=== PATIENT | female | born 1965 | race Caucasian/White ===

== ENCOUNTER 2017-10-29 13:36 | Emergency (ER) | payer OTHER ==
[2017-10-29 13:42] VITALS: TEMP 36.8; Ht 154.9 cm
--- NOTE | 2017-10-29 14:26 | DIAGNOSTIC IMAGING REPORT ---
R ANKLE MIN 3 VIEWS ROUTINE CLINICAL HISTORY: r ankle pain trauma COMPARISON: None. DISCUSSION: Transverse nondisplaced fracture distal tibia immediately superior to the medial malleolus. Ankle mortise is aligned anatomically. Moderate soft tissue edema. All remaining osseous structures are unremarkable. Small heel spur. Mild soft tissue edema IMPRESSION: Transverse nondisplaced fracture distal tibia im medially superior to the medial malleolus. Soft tissue edema. No evidence for dislocation. The above report was generated using voice recognition software. It may contain grammatical, syntax or spelling errors. Electronically signed by: Vasquez Duke M.D. 10/29/2017 2:25 PM Dictated Date/Time: 10/29/2017 2:23 PM
--- NOTE | 2017-10-29 14:28 | DIAGNOSTIC IMAGING REPORT ---
R TIBIA/FIBULA 2 VIEWS ROUTINE CLINICAL HISTORY: r leg pain pain COMPARISON: None. DISCUSSION: Oblique fracture proximal fibula. Transverse fracture distal tibia superior to the medial malleolus. All remaining osseous structures are unremarkable. Small heel spur is present at the posterior heel. Minimal ossification Achilles tendon insertion. IMPRESSION: 1. Oblique nondisplaced fracture proximal fibula. 2. Transverse fracture distal tibia immediately superior to the medial malleolus. The above report was generated using voice recognition software. It may contain grammatical, syntax or spelling errors. Electronically signed by: Vasquez Duke M.D. 10/29/2017 2:26 PM Dictated Date/Time: 10/29/2017 2:25 PM
--- NOTE | 2017-10-29 14:38 | DIAGNOSTIC IMAGING REPORT ---
HEAD WITHOUT CONTRAST (CT) CT DOSE: HISTORY: Trauma fall TECHNIQUE: Multiaxial CT images of the head were performed without the use of intravenous contrast. A dose lowering technique was utilized adhering to the principles of ALARA. Comparison: None. Findings: The paranasal sinuses and mastoid air cells are clear. The calvarium and skull base are intact. The ventricles and sulci are within normal limits. There is no mass, hematoma, midline shift, or acute infarct. Impression: No acute intracranial abnormality. The above report was generated using voice recognition software. It may contain grammatical, syntax or spelling errors. Electronically signed by: Vasquez Duke M.D. 10/29/2017 2:36 PM Dictated Date/Time: 10/29/2017 2:30 PM
--- NOTE | 2017-10-29 14:43 | DIAGNOSTIC IMAGING REPORT ---
CERVICAL SPINE W/O CT DOSE: 948.29 mGy.cm HISTORY: Trauma fall TECHNIQUE: Multiaxial CT images of the cervical spine were performed and reformatted in the sagittal and coronal plane without the use of contrast. A dose lowering technique was utilized adhering to the principles of ALARA. COMPARISON: None. FINDINGS: No fractures. No subluxation. Prevertebral soft tissues and the C1-C2 interval are intact. No pneumothorax. Straightening of the cervical curvature consistent with muscular spasm. Degenerative disc change from C5 through C7. Anterior osteophyte at similar levels. IMPRESSION: No acute bony abnormality. Moderate degenerative change. Muscle spasm. The above report was generated using voice recognition software. It may contain grammatical, syntax or spelling errors. Electronically signed by: Vasquez Duke M.D. 10/29/2017 2:42 PM Dictated Date/Time: 10/29/2017 2:40 PM
[2017-10-29] MEDS ORDERED: OXYC-737 PO (15:03)
[2017-10-29 15:50] VITALS: BP 150/82; PULSE 108; O2SAT 98
--- NOTE | 2017-10-29 20:30 | EMERGENCY ROOM VISIT NOTE ---
History Report prepared by Adeelibzain: Natalia Diaz Under the Supervision of: Dr. Adolfo Martinez D.O. First contact with patient: 13:54 Chief Complaint: ANKLE PAIN Stated Complaint: ANKLE PAIN History of Present Illness The patient is a 52 year old female who presents to the Emergency Room with complaints of persistent right ankle pain since last night. She reports she was walking downstairs when she fell. She remembers dropping popcorn during the fall , but is unsure exactly what happened, although she remembers falling backwards and hitting her head. She states she does not know how she injured her left ankle. She rates her ankle pain as a 9/10 in severity. She did not lose consciousness and was able to get herself up afterwards. She does complain of some head pain where she hit her head during the fall. She does not take daily blood thinners. The patient denies any recent change in vision, fevers, chest pain, shortness of breath, neck pain, back pain, hip pain, knee pain, nausea, vomiting, diarrhea, pain with urination, and melena. Source of History: patient Onset: last night Position: ankle (right) Symptom Intensity: 9/10 Timing: other (persistent) Associated Symptoms: + headache, No LOC, No fevers, No neck pain, No chest pain, No SOB, No nausea, No vomiting, No back pain, No melena, No diarrhea, No urinary symptoms Review of Systems See HPI for pertinent positives & negatives. A total of 10 systems reviewed and were otherwise negative. Past Medical & Surgical Medical Problems: (1) Diabetes mellitus Social History Smoking Status: Never Smoker Alcohol Use: none Drug Use: none Marital Status: single Housing Status: lives alone Occupation Status: unemployed Current/Historical Medications Scheduled PRN Oxycodone Immediate Rel Tab (Roxicodone Ir), 5 MG PO Q6H PRN for Pain Allergies Coded Allergies: No Known Allergies (Unverified , 10/29/17) Physical Exam Vital Signs Date Time Temp Pulse Resp B/P (MAP) Pulse Ox O2 Delivery O2 Flow Rate FiO2 10/29/17 15:50 108 20 150/82 98 Room Air 10/29/17 13:54 114 17 134/94 97 Room Air 10/29/17 13:42 36.8 124 18 133/75 95 Room Air Physical Exam GENERAL: Patient is sitting up in bed, alert, well appearing, well nourished, no distress, non-toxic HEAD: normal cephalic, atraumatic, minimal tenderness at the occiput EYE EXAM: normal conjunctiva, PERRL and EOM's grossly intact OROPHARYNX: no exudate, no erythema, lips, buccal mucosa, and tongue normal and mucous membranes are moist EARS: TMs clear b/l NECK: supple, no nuchal rigidity, no adenopathy, non-tender CHEST: stable to compression anteriorly and posteriorly LUNGS: clear to auscultation. Normal chest wall mechanics HEART: Tachycardic heart rate, no murmurs, S1 normal and S2 normal ABDOMEN: abdomen soft, non-tender, normo-active bowel sounds, no masses, no rebound or guarding. PELVIS: stable to compression anteriorly and posteriorly BACK: Back is symmetrical on inspection and there is no deformity, no midline tenderness, no CVA tenderness. UPPER EXTREMITIES: Full active and passive range of motion of all joints without tenderness to palpation LOWER EXTREMITIES: Right lower extremity with bruising and swelling from mid shaft of tibia/fibula to the right ankle, tenderness over the medial malleolus, DP's 2/4, gross sensation is intact. NEURO EXAM: Normal sensorium, cranial nerves II-XII grossly intact, normal speech, no gross weakness of arms, no gross weakness of legs. GCS: 15. Medical Decision & Procedures ER Provider Diagnostic Interpretation: Radiology results as stated below per my review and the radiologist's interpretation: R ANKLE MIN 3 VIEWS ROUTINE CLINICAL HISTORY: r ankle pain trauma COMPARISON: None. DISCUSSION: Transverse nondisplaced fracture distal tibia immediately superior to the medial malleolus. Ankle mortise is aligned anatomically. Moderate soft tissue edema. All remaining osseous structures are unremarkable. Small heel spur. Mild soft tissue edema IMPRESSION: Transverse nondisplaced fracture distal tibia im medially superior to the medial malleolus. Soft tissue edema. No evidence for dislocation. The above report was generated using voice recognition software. It may contain grammatical, syntax or spelling errors. Electronically signed by: Vasquez Duke M.D. 10/29/2017 2:25 PM CERVICAL SPINE W/O CT DOSE: 948.29 mGy.cm HISTORY: Trauma fall TECHNIQUE: Multiaxial CT images of the cervical spine were performed and reformatted in the sagittal and coronal plane without the use of contrast. A dose lowering technique was utilized adhering to the principles of ALARA. COMPARISON: None. FINDINGS: No fractures. No subluxation. Prevertebral soft tissues and the C1-C2 interval are intact. No pneumothorax. Straightening of the cervical curvature consistent with muscular spasm. Degenerative disc change from C5 through C7. Anterior osteophyte at similar levels. IMPRESSION: No acute bony abnormality. Moderate degenerative change. Muscle spasm. The above report was generated using voice recognition software. It may contain grammatical, syntax or spelling errors. Electronically signed by: Vasquez Duke M.D. 10/29/2017 2:42 PM HEAD WITHOUT CONTRAST (CT) CT DOSE: HISTORY: Trauma fall TECHNIQUE: Multiaxial CT images of the head were performed without the use of intravenous contrast. A dose lowering technique was utilized adhering to the principles of ALARA. Comparison: None. Findings: The paranasal sinuses and mastoid air cells are clear. The calvarium and skull base are intact. The ventricles and sulci are within normal limits. There is no mass, hematoma, midline shift, or acute infarct. Impression: No acute intracranial abnormality. The above report was generated using voice recognition software. It may contain grammatical, syntax or spelling errors. Electronically signed by: Vasquez Duke M.D. 10/29/2017 2:36 PM R TIBIA/FIBULA 2 VIEWS ROUTINE CLINICAL HISTORY: r leg pain pain COMPARISON: None. DISCUSSION: Oblique fracture proximal fibula. Transverse fracture distal tibia superior to the medial malleolus. All remaining osseous structures are unremarkable. Small heel spur is present at the posterior heel. Minimal ossification Achilles tendon insertion. IMPRESSION: 1. Oblique nondisplaced fracture proximal fibula. 2. Transverse fracture distal tibia immediately superior to the medial malleolus. The above report was generated using voice recognition software. It may contain grammatical, syntax or spelling errors. Electronically signed by: Vasquez Duke M.D. 10/29/2017 2:26 PM ED Course ED COURSE: Vital signs were reviewed and showed the patient is tachycardic. The patients medical record was reviewed The above diagnostic studies were performed and reviewed. ED treatments and interventions as stated above. 1355: The patient was evaluated in room A10. A complete history and physical examination was performed. 1450: I reevaluated the patient. She is resting comfortably. I discussed her imaging results and she verbalized complete understanding and agreement. 1455: I discussed the patients case with Dr. [facility]. He agrees with splinting the patient and will follow up with her in the office on Monday. 1520: Upon reevaluation, the patient is resting and feeling well. She has good capillary refill and is in no pain after splinting. I discussed my findings with the patient and she understands and agrees with the treatment plan. Based on the patients age, coexisting illnesses, exam and lab findings the decision to treat as an outpatient was made. The patient remained stable while under my care. The patient appeared well at the time of discharge. Medical Decision Etiologies such as fracture, dislocation, neurovascular compromise, compartment syndrome, soft tissue injury, as well as others were entertained. Patient is a 52-year-old female who tripped last night and hurt her right ankle. She is tenderness over the ankle and proximal fibula. X-rays show a fracture of the distal tibia and proximal fibula. This was splinted after discussion with orthopedics. Patient will follow-up on Monday morning. She was given a walker. Nonweightbearing with stress. Pain medications were given. CT head and neck were negative. She takes no blood thinners. No other complaints. Patient was discharged follow-up with orthopedics as an outpatient. Discussed with Pt concerning signs and symptoms to watch out for. Pt was instructed to follow up with their PCP and discussed with the patient their option to return to the ED at anytime for persistent or worsening symptoms. The appropriate anticipatory guidance and out-patient management, including indications for return to the emergency department, were explained at length to the patient and understood. Medication Reconcilliation Current Medication List: was personally reviewed by me Blood Pressure Screening Patient's blood pressure: Normal blood pressure Blood pressure disposition: Did not require urgent referral Consults Time Called: 1449 Consulting Physician: Dr. [facility] Returned Call: 1450 I discussed the patients case with Dr. [facility]. He agrees with splinting the patient and will follow up with her in the office on Monday. Impression Primary Impression: Maisonneuve fracture Additional Impressions: Fracture of distal end of right tibia Fracture of proximal end of right fibula Scribe Attestation The scribe's documentation has been prepared under my direction and personally reviewed by me in its entirety. I confirm that the note above accurately reflects all work, treatment, procedures, and medical decision making performed by me. Departure Information Dispostion Home / Self-Care Prescriptions Oxycodone Immediate Rel Tab (ROXICODONE IR) 5 Mg Tab 5 MG PO Q6H Y for Pain, #14 TAB Prov: Juan Adolfo Novak, DO 10/29/17 Referrals No Doctor, Assigned (PCP) Patient Instructions ED Fx Ankle General, My [facility] Additional Instructions Please follow up with your primary care doctor with in the next 24 hours. Any worsening of your symptoms, please return to the ED immediately. This includes any worsening pain, numbness, increased swelling, or any other concerning signs or symptoms from your standpoint. You were given medications during this visit that will inhibit your ability to drive, operate machinery and work. Please do NOT drive, operate machinery or work for the next 12hrs. You were also given a prescription for a narcotic. While taking this medication you should also not drive, operate machinery and or work. Follow-up with orthopedics on Monday. Problem Qualifiers Primary Impression: Maisonneuve fracture Encounter type: initial encounter Fracture type: closed Fracture alignment : nondisplaced Laterality: unspecified laterality Qualified Codes: S82.866A - Nondisplaced Maisonneuve's fracture of unspecified leg, initial encounter for closed fracture Additional Impressions: Fracture of distal end of right tibia Encounter type: initial encounter Fracture type: closed Fracture morphology : unspecified fracture morphology Qualified Codes: S82.301A - Unspecified fracture of lower end of right tibia, initial encounter for closed fracture Fracture of proximal end of right fibula Encounter type: initial encounter Fracture type: closed Fracture morphology : unspecified fracture morphology Qualified Codes: S82.831A - Other fracture of upper and lower end of right fibula, initial encounter for closed fracture
[2017-11-02] MEDS ORDERED: PROM1TAB6 PO (11:10)
[2017-11-06] MEDS ORDERED: ASPI-320 PO (07:43)
== END 2017-10-29 16:15 | disposition home or self-care (01) ==
LOC: C.EDB 13:37 → C.EDA 16:15
DX: S82.864A Nondisplaced Maisonneuve's fracture of right leg, initial encounter for closed fracture (principal); S82.301A Unspecified fracture of lower end of right tibia, initial encounter for closed fracture; S82.831A Other fracture of upper and lower end of right fibula, initial encounter for closed fracture; W10.9XXA Fall (on) (from) unspecified stairs and steps, initial encounter; W22.8XXA Striking against or struck by other objects, initial encounter; Y93.01 Activity, walking, marching and hiking; Y99.8 Other external cause status; E11.9 Type 2 diabetes mellitus without complications

== ENCOUNTER 2017-11-03 06:48 | Inpatient (IN) | payer SELFPAY ==
[2017-11-02 11:13] VITALS: BMI 28.0
--- NOTE | 2017-11-02 11:41 | PAT Medication Instructions ---
Service Date Nov 02, 2017. Current Home Medication List Oxycodone Immediate Rel Tab (Roxicodone Ir), 5 MG PO Q6H PRN for Pain Promethazine (Phenergan), 25 MG PO Q8 PRN for prn Medication Instructions For Your Scheduled Surgery - Take the following medications the morning of surgery with a sip of water: Oxycodone Immediate Rel Tab (Roxicodone Ir), 5 MG PO Q6H PRN for Pain (if needed , can be taken up to four hours before surgery) Promethazine (Phenergan), 25 MG PO Q8 PRN for prn (if needed) - Take the following medications as scheduled the night before surgery: Oxycodone Immediate Rel Tab (Roxicodone Ir), 5 MG PO Q6H PRN for Pain (if needed ) Promethazine (Phenergan), 25 MG PO Q8 PRN for prn (if needed) Tylenol OK AM day of surgery due to nausea/vomiting from Oxycodone-- DO NOT TAKE IBUPROFEN. If you have any questions please call us at [phone] or [phone] or [phone]
--- NOTE | 2017-11-02 12:35 | DIAGNOSTIC IMAGING REPORT ---
TWO VIEW CHEST CLINICAL HISTORY: Preoperative examination. FINDINGS: PA and lateral chest radiographs are obtained. No prior studies are available for comparison at the time of dictation. The cardiomediastinal silhouette is unremarkable. There is minimal left basilar atelectasis. The lungs and pleural spaces are otherwise clear. There is no pneumothorax. The bony thorax appears intact. IMPRESSION: No active disease in the chest. Electronically signed by: Connor Mahoney M.D. 11/02/2017 12:34 PM Dictated Date/Time: 11/02/2017 12:33 PM
[2017-11-02 12:54] LABS: BASO % 0.3 %; BASO ABS # 0.03 K/uL (0-0.2); EOS % 0.3 %; EOS ABS # 0.03 K/uL (0-0.5); HEMATOCRIT 37.3 % (37-47); HEMOGLOBIN 12.6 g/dL (12.0-16.0); IG# 0.04 K/uL (0.00-0.02); LYMPH % 14.5 %; LYMPH ABS # 1.73 K/uL (1.2-3.4); MEAN CELL VOLUME 93.3 fL (80-100); MEAN CORPUSCULAR HEMOGLOBIN 31.5 pg (25-34); MEAN CORPUSCULAR HGB CONC 33.8 g/dl (32-36); MEAN PLATELET VOLUME 11.3 fL (7.4-10.4); MONO % 6.3 %; MONO ABS # 0.75 K/uL (0.11-0.59); NEUT % 78.3 %; NEUT ABS # 9.32 K/uL (1.4-6.5); PLATELET COUNT 220 K/uL (130-400); RED CELL DISTRIBUTION WIDTH CV 12.6 % (11.5-14.5); RED CELL DISTRIBUTION WIDTH SD 42.6 fL (36.4-46.3)
[2017-11-02 13:06] LABS: PTT PATIENT 25.7 SECONDS (21.0-31.0)
[2017-11-02 13:18] LABS: HEMOGLOBIN A1C 11.1 % (4.5-5.6)
[2017-11-02 16:55] LABS: ALBUMIN 3.3 gm/dl (3.4-5.0); CALCIUM 9.6 mg/dl (8.5-10.1); POTASSIUM 4.1 mmol/L (3.5-5.1)
--- NOTE | 2017-11-02 18:50 | History and Physical ---
History & Physical Date Nov 02, 2017. Chief Complaint right ankle pain History of Present Illness The patient is a 52 year old female with complaints of right ankle pain following a fall. She had x-rays performed which noted a medial malleolus fx and also a proximal fibula fx. She was placed into a splint on the RLE and is now being set up for surgical tx. Past Medical/Surgical History Medical Problems: (1) Diabetes mellitus Past Surgical hx: None Social hx: Denies tobacco and alcohol Allergies Coded Allergies: No Known Allergies (Unverified , 11/02/17) Home Medications Scheduled PRN Oxycodone Immediate Rel Tab (Roxicodone Ir), 5 MG PO Q6H PRN for Pain Promethazine (Phenergan), 25 MG PO Q8 PRN for prn Physical Examination Skin: warm/dry, no rash Eyes: normal inspection ENT: normal ENT inspection Head: normocephalic, atraumatic Neck: supple, no adenopathy, trachea midline Respiratory/Chest: lungs clear, normal breath sounds, no respiratory distress Cardiovascular: regular rate, rhythm, no murmur Abdomen / GI: normal bowel sounds, non tender Extremities: + pertinent finding (Right ankle: +swelling, Tender at the medial malleolus and proximal fibula. No ROM or strength testing done.) Neurologic/Psych: no motor/sensory deficits, alert, oriented x 3 Diagnosis Right ankle medial malleolus fx Right proximal fibula fx Plan of Treatment Recommend an ORIF right medial malleolus fx, closed tx right proximal fibula fx. All potential risks, benefits, complications, alternatives, and rehab have been discussed and she wishes to proceed. She will be scheduled for 11.03.17. ASA 81 mg BID x 4-6 wks for DVT prophylaxis. Patient will need to be evaluated for DM control.
[~2017-11-03] VITALS: Ht 154.9 cm; Wt 68.2 kg
[2017-11-03] VITALS (9 sets, daily range): BP systolic 109–146; BP diastolic 53–85; PULSE 77–100; TEMP 37–37.5; O2SAT 92–98; Ht 154.9 cm; Wt 68.2 kg
[~2017-11-03 06:48] MED LIST: BUPIVACAINE 0.25% 30 ML VIAL ONE; CEFAZOLIN 2000MG IV PUSH 10 ML IV SCH; FENTANYL CITRATE INJ 50 MCG/1 ML 2 ML VIAL ONE; GLYCOPYRROLATE INJ 0.2 MG/ML VIAL ONE; MIDAZOLAM HCL 1 MG/ML 2ML VIAL ONE; NEOSTIGMINE METHYLSULFATE 5 MG/5 ML SYR ONE; ONDANSETRON INJ 2 MG/ML 2 ML VIAL ONE; OXYC1TAB3 PO; PROM1TAB6 PO; PROPOFOL IV EMULSION 10 MG/ML 20 ML VIAL IV ONE; ROCURONIUM BROMIDE 10 MG/ML 5 ML VIAL IV ONE; ROPIVACAINE 0.5% 5 MG/ML 30 ML VIAL ONE
[2017-11-03] MEDS ORDERED: BUPIVACAINE 0.5 % 5 MG/1 ML MPF 30ML VIAL ONE (07:03)
[2017-11-03] MEDS ORDERED: EpINEphrine INJ 1MG/ML AMP 1 MG/ML AMP ONE (07:03)
--- NOTE | 2017-11-03 07:57 | History & Physical Bridge Note ---
H&P Re-Evaluation Bridge Note: I have examined the patient, reviewed the History & Physical and in the interval since the performance of the History & Physical I have noted the following changes of clinical significance: No changes noted
[2017-11-03 08:13] LABS: CALCIUM 8.8 mg/dl (8.5-10.1); CREATININE 0.92 mg/dl (0.60-1.20); POTASSIUM 3.9 mmol/L (3.5-5.1)
[2017-11-03 08:23] LABS: HEMOGLOBIN A1C 11.2 % (4.5-5.6)
[2017-11-03] MEDS ORDERED: CEFAZOLIN SOD 2000MG/10 ML IV PUSH IV ONE (08:54)
[2017-11-03] MEDS ORDERED: BACITRACIN 50000 UNIT VIAL ONE (09:19)
[2017-11-03] MEDS ORDERED: FENTANYL CITRATE INJ 50 MCG/1 ML 2 ML VIAL ONE ×2 (09:38→09:39)
[2017-11-03] MEDS ORDERED: KETAMINE HCL INJ 50 MG/ML 10 ML VIAL ONE (09:51)
[2017-11-03] MEDS ORDERED: KETOROLAC TROMETHAMINE 15 MG/ML VIAL IV. PRN (10:00)
[2017-11-03] MEDS ORDERED: ACETAMINOPHEN 1000 MG/100 ML IV IV ONE (10:00)
[2017-11-03] MEDS ORDERED: ATROPINE SULFATE 0.1 MG/ML 5ML SYR IV PRN (10:00)
[2017-11-03] MEDS ORDERED: FENTANYL CITRATE INJ 50 MCG/1 ML 2 ML VIAL IV PRN (10:00)
[2017-11-03] MEDS ORDERED: ONDANSETRON INJ 2 MG/ML 2 ML VIAL IV PRN ×2 (10:00→10:30)
[2017-11-03] MEDS ORDERED: HYDROmorphone INJ 1 MG/ML SYR IV PRN (10:00)
[2017-11-03] MEDS ORDERED: EpHEDrine SULFATE INJ 50 MG/ML AMP IV PRN (10:00)
--- NOTE | 2017-11-03 10:03 | [facility] Post Operative Brief Note ---
Immediate Operative Summary Operative Date Nov 03, 2017. Pre-Operative Diagnosis Right ankle displaced medial malleolus fracture, Right proximal fibula fracture, Syndesmotic injury Post-Operative Diagnosis Right ankle displaced medial malleolus fracture, Right proximal fibula fracture, Syndesmotic injury Procedure(s) Performed Open reduction internal fixation right ankle medial malleolus fracture, Open reduction internal fixation syndesmosis, Closed treatment right proximal fibula fracture Surgeon Dr. Iman Zabala [employer] Surgeon(s) Aki Ho PA-C Estimated Blood Loss 2 cc Findings See dict Specimens none per surgeon Drains None Anesthesia GLMA w/ partial ankle block Complication(s) None Disposition Recovery Room / PACU
[2017-11-03] MEDS ORDERED: CEFAZOLIN IV 1,000 MG in DEXTROSE 5% 50ML 50 ML IV SCH (10:30)
[2017-11-03] MEDS ORDERED: ALUMINUM/MAGNESIUM/SIMETH (MAALOX MAX) 30 ML UDC PO PRN (10:30)
[2017-11-03] MEDS ORDERED: MoRPHine SULFATE 4 MG/ML 1 ML CARP\\VIAL IV PRN (10:30)
[2017-11-03] MEDS: POTASSIUM CHLORIDE INJ 10 MEQ in SODIUM CHLORIDE 0.9% 1000ML 1,000 ML IV SCH ×3 (10:30→17:09)
[2017-11-03] MEDS ORDERED: MAGNESIUM HYDROXIDE SUSP 30 ML UDC PO PRN (10:30)
[2017-11-03] MEDS ORDERED: MoRPHine SULFATE 2 MG/ML CARP IV PRN (10:30)
--- NOTE | 2017-11-03 10:43 | DIAGNOSTIC IMAGING REPORT ---
R ANKLE 2 VIEWS CLINICAL HISTORY: 52 years-old Female presenting with RT ANKLE ORIF. TECHNIQUE: 2 fluoroscopic spot image(s) obtained as part of an intraoperative procedure. COMPARISON: 10/29/2017. FINDINGS/IMPRESSION: 2 syndesmotic screw fixation across the tibiofibular articulation and 2 lag screw fixation of the medial malleolus noted. Ankle mortise grossly intact. Please see surgical report for further details. Fluoroscopy dosage (mGy): 1.28. Fluoroscopy time: 44.9 seconds. Number of fluoroscopic spot images: 2. Electronically signed by: Didier Clements M.D. 11/03/2017 10:42 AM Dictated Date/Time: 11/03/2017 10:41 AM
[2017-11-03] MEDS ORDERED: PHARMACY GLYCEMIC MGMT CONSULT PRN (10:49)
[2017-11-03] MEDS ORDERED: DEXTROSE 50% 50 ML SYR IV PRN (11:00)
[2017-11-03] MEDS ORDERED: GLUCOSE 40% GEL 15 GM TUBE PO PRN (11:00)
[2017-11-03] MEDS ORDERED: GLUCOSE 10 TABS/TUBE PO PRN (11:00)
[2017-11-03] MEDS ORDERED: GLUCAGON FOR INJ 1 MG VIAL SQ PRN (11:00)
--- NOTE | 2017-11-03 11:17 | Anesthesiology Progress Note ---
Anesthesia Post Op Note Date & Time Nov 03, 2017 at 11:17 Vital Signs Pain Intensity: 0 Vital Signs Past 12 Hours Date Time Temp Pulse Resp B/P (MAP) Pulse Ox O2 Delivery O2 Flow Rate FiO2 11/03/17 11:06 73 146/84 100 11/03/17 11:06 75 16 11/03/17 11:01 77 141/66 100 11/03/17 11:01 76 16 11/03/17 11:00 36.4 11/03/17 10:57 81 16 100 11/03/17 10:57 82 11/03/17 10:56 149/75 11/03/17 10:52 78 17 11/03/17 10:52 77 17 100 11/03/17 10:51 136/94 11/03/17 10:47 80 13 11/03/17 10:47 79 13 100 11/03/17 10:46 144/85 11/03/17 10:42 86 17 100 11/03/17 10:42 83 17 11/03/17 10:41 158/86 11/03/17 10:40 Nasal Cannula 3 11/03/17 10:37 92 13 100 11/03/17 10:37 93 13 11/03/17 10:36 155/98 11/03/17 10:32 97 14 11/03/17 10:32 98 14 100 11/03/17 10:30 157/93 11/03/17 10:27 36.6 97 12 157/93 100 Oxymask 7 11/03/17 07:23 37 100 18 130/53 (78) 95 Room Air Notes Mental Status: alert / awake / arousable, participated in evaluation Pt Amnestic to Procedure: Yes Nausea / Vomiting: adequately controlled Pain: adequately controlled Airway Patency, RR, SpO2: stable & adequate BP & HR: stable & adequate Hydration State: stable & adequate Anesthetic Complications: no major complications apparent
--- NOTE | 2017-11-03 11:17 | OPERATIVE REPORT ---
DATE OF OPERATION: 11/03/2017 PREOPERATIVE DIAGNOSES: 1. Right displaced medial malleolus fracture. 2. Syndesmotic disruption. 3. Proximal fibula fracture. POSTOPERATIVE DIAGNOSES: Same. PROCEDURES: 1. Open reduction and internal fixation of right medial malleolus fracture. 2. Open reduction and internal fixation of right syndesmotic disruption. 3. Closed treatment of right proximal fibula fracture. SURGEON: Dr. Wicho Zabala. PRODUCT SUPPORT TECHNICIAN: Aki Ho PA-C. ANESTHESIA: General endotracheal tube with a partial ankle block. SPECIMENS: None. DRAINS: None. COMPLICATIONS: None. BLOOD LOSS: 2 mL. PERTINENT HISTORY: This is a 52-year-old female who had a trip and fall, landing on her right lower extremity. She had pain and inability to ambulate. She was seen in the Emergency Department and then eventually, splinted and referred to orthopedics. She is scheduled for surgery as indicated for her displaced medial malleolus fracture with syndesmotic disruption with medial ankle joint widening. All potential risks, benefits, complications, alternatives, rehab, potential for incomplete relief of symptoms, need for further surgery, DVT, PE, , persistent pain, swelling, scarring, weakness, neurovascular injury, wound complications, hardware failure, nonunion, malunion, stiffness and loss of function were discussed with the patient. The patient decided to proceed with the procedure as indicated. DESCRIPTION OF PROCEDURE: The patient was taken to the operative suite and placed supine on the operating room table. After reviewing consent and identification of proper operative site, the patient was anesthetized and endotracheal tube was placed. Next, tourniquet was placed high on the right thigh over cast padding. Right lower extremity was sterilely prepped and draped in the usual fashion, elevated, and exsanguinated with an Esmarch bandage and tourniquet inflated to 350 mmHg. Next, a 15 blade scalpel was used to make an incision over the medial malleolus. The incision was deepened through subcutaneous tissue. Meticulous hemostasis was achieved with electrocautery. Next, the saphenous vein was retracted and protected. There was noted to be a flap of periosteum, which had flipped into the fracture, thus explaining the displacement. The periosteal flap was then excised with a 15 blade scalpel. The fragment was then opened with a dental pick and then, a small rongeur was then used to remove any fibrous tissue. The wound was copiously irrigated with sterile normal saline. The fracture was irrigated with sterile normal saline. The fracture was then reduced using a point reduction forceps. After this was stabilized, this fragment was then fixated with two 4.0 cannulated screws placed under live fluoroscopic assistance to the medial malleolus. These screws were then slightly countersunk. Anatomic reduction was achieved. Next, using the C-arm fluoroscope, stress views were obtained, noting widening of the syndesmosis and widening of the medial joint space. Next, the 15 blade scalpel was then used to make a 1-cm incision over the lateral malleolus at the level of the syndesmosis. Next, a Pizano reduction tong was then placed from the medial malleolus to the lateral malleolus, stabilizing the syndesmosis with the foot held in neutral dorsiflexion. Next, two 3.5-mm screws were placed across the syndesmosis and stabilized. Next, stress views were then once again performed, noting stabilization of the syndesmosis and no further widening of the medial joint space. Next, the wounds were both irrigated with sterile normal saline. The deep periosteal tissue was closed with 2-0 Vicryl over the medial malleolus and then the dermis was closed using buried interrupted 2-0 Vicryl sutures in both medial and lateral incisions followed by closure of the skin incisions with 4-0 nylon. A partial ankle block was then performed with 0.5% Marcaine plain and then, the sterile compressive dressing was applied, overwrapped with a bulky Peter Arshad plaster splint, which was then also used to stabilize the operative fixation as well as the proximal fibula fracture, which was deemed appropriate to treat closed according to radiographs and positioning and alignment. Next, the tourniquet was released. The patient was awakened and taken to recovery in stable condition. I attest to the content of the Intraoperative Record and any orders documented therein. Any exception s are noted below.
[2017-11-03] MEDS: INSULIN ASPART 100 UNITS/ML 3 ML PEN SC SCH ×4 (12:00→21:53)
[2017-11-03] MEDS ORDERED: INSULIN GLARGINE SOLOSTAR 100 UNITS/ML 3 ML PEN SC SCH ×2 (12:00→21:00)
[2017-11-03] MEDS: OXYCODONE HCL IR 5 MG TAB (IMMEDIATE RELEASE) PO PRN (12:37)
[2017-11-03] MEDS: ACETAMINOPHEN 500 MG TAB PO SCH ×2 (13:04→22:19)
--- NOTE | 2017-11-03 13:53 | Pharmacy Progress Note ---
Glycemic Control Intl Consult Date of Service Nov 03, 2017. Scope Glycemic Pharmacist consulted by Aki Ho on 11/03/17 for glycemic control and to write orders per [facility] inpatient glycemic control protocol Objective Weight (Kilograms): 68.180 Accuchecks BSG (last 24hrs): Test 11/03/17 07:12 11/03/17 07:20 11/03/17 09:17 11/03/17 09:46 Bedside Glucose 365 mg/dl (70-90) 326 mg/dl (70-90) 240 mg/dl (70-90) Random Glucose 331 mg/dl (70-99) Test 11/03/17 10:31 11/03/17 12:29 Bedside Glucose 195 mg/dl (70-90) 227 mg/dl (70-90) Laboratory Data (last 24hrs) Test 11/03/17 07:20 Anion Gap 7.0 mmol/L BUN/Creatinine Ratio 17.0 Blood Urea Nitrogen 16 mg/dl Creatinine 0.92 mg/dl Hemoglobin A1c 11.2 % Potassium Level 3.9 mmol/L Sodium Level 133 mmol/L HbA1c Test 11/03/17 07:20 Hemoglobin A1c 11.2 % (4.5-5.6) H Recent Pertinent Medications Outpatient Anti-diabetic Regimen: * N/A Risk Factors for Insulin Resistance: * Recent Surgery: POD 0 for tib fracture surgery * Diet: type 2 diabetic diet: Assessment & Plan ASSESSMENT: * Ms Oconnor is a 52 y/o F who underwent a tibia fracture repair surgery today. Per nursing handoff, the patient does not current receive diabetes treatment. * Prior to surgery, the patient's blood sugar was 326 mg/dL this morning which has trended downwards throughout the day to 227 mg/dL prior to lunch. With multiple blood sugars above 200 mg/dL, started Lantus 15 units (0.2 units/kg) with additional dose available for this evening if blood sugar still elevated above 180 mg/dL. Tomorrow's dose to be established based upon the response today. * For Novolog, most individuals require around weight-based stress of 2 for meal -time coverage. Will begin this with an elevated goal range secondary to prolonged elevated blood sugars. Added on overnight accucheck to ensure patient does not trend upwards throughout the night. PLAN FOR INPATIENT GLYCEMIC CONTROL: * Basal insulin with LANTUS 15 units SQ x 1 then 5 units tonight if blood sugar remains above 180 mg/dL * Correctional Insulin with NOVOLOG per scale ACHS or Q6hrs while NPO * Goal Range: Low 140 mg/dL - High 180 mg/dL * Correction Factor: 30 mg/dL/unit * Nutritional / Prandial insulin per carb ratio of 1 unit per 10 grams CHO consumed * Please note that the plan above was derived based on current level of insulin resistance and hospital stress. These recommendations are appropriate for inpatient admission only. Plan of care upon discharge will need to be reassessed to avoid potential outpatient hypo/hyperglycemia. Thank you.
--- NOTE | 2017-11-03 14:53 | Medical Consult ---
Consultation Date of Consultation: Nov 03, 2017. Attending Physician: Wicho Zabala D.O. Reason for Consultation: Medical management History of Present Illness Pt is 52 y/o F with PMH diabetes seen for medical consultation after ORIF R medial malleolus fracture, ORIF R syndesmotic disruption and closed tx R proximal fibular fracture by Dr Zabala today. Pt admits has not been seen by PCP for >3 years and hasn't taken her metformin 1000mg BID or lisinopril 2.5mg or checked her BS for >3 years. States been "feeling fine" for past couple of years. Ate lunch today after surgery without nausea or vomiting. Last BM 2 days ago. Having some pain to R ankle, reports received some pain meds which helped to relieve some pain. Pt not taking any meds prior to her recent fracture. Denies recent fever/chills, diaphoresis, N/V/D, MAGANA, dizziness, vision changes, neck pain, back pain, CP, SOB, orthopnea, palpitations, cough, sore throat, choking, otalgia, rhinorrhea, abdominal pain, paresthesias, weakness, extremity weakness, extremity edema, rashes, urinary symptoms. She had labs yesterday with Hgb: 12.6 and EKG with NSR rate 92 and 1+ketones in urine. This morning gluc: 331, corrected Na 137, K: 3.9, A.0.HA1C: 11.2. beta-hydroxybutyric acid: 9.7. She was given lantus 15U at noon today and 6U NovoLog at 1300. Her last glucose 227 at 1230. Past Medical/Surgical History Medical Problems: (1) Diabetes mellitus Status: Chronic Pt Denies previous surgical history Family History Not obtainable due to adoption Social History Smoking Status: Never Smoker Smokeless Tobacco Use: No Alcohol Use: none Drug Use: none Marital Status: single Housing Status: lives alone Occupation Status: unemployed Allergies Coded Allergies: No Known Allergies (Unverified , 11/03/17) Current Inpatient Medications Current Inpatient Medications Medications (Trade) Dose Ordered Sig/Vaishali Route Start Time Stop Time Status Last Admin Dose Admin Fentanyl Citrate (Fentanyl Inj) 25 mcg Q5M PRN IV 11/03/17 10:00 11/03/17 15:00 Hydromorphone HCl (Dilaudid Inj) 0.25 mg Q5M PRN IV 11/03/17 10:00 11/03/17 15:00 Ketorolac Tromethamine (Toradol Inj) 15 mg UD PRN IV. 11/03/17 10:00 11/03/17 15:00 Ondansetron HCl (Zofran Inj) 4 mg ONE PRN IV 11/03/17 10:00 11/03/17 15:00 Ephedrine Sulfate (EpHEDrine SULFATE INJ) 5 mg Q5M PRN IV 11/03/17 10:00 11/03/17 15:00 Atropine Sulfate (Atropine Sulfate 0.1mg/ml Inj) 0.5 mg Q1M PRN IV 11/03/17 10:00 11/03/17 15:00 Morphine Sulfate (MoRPHine SULFATE INJ) 2 mg Q4HWA PRN IV 11/03/17 10:30 11/17/17 10:29 Morphine Sulfate (MoRPHine SULFATE INJ) 4 mg Q4HWA PRN IV 11/03/17 10:30 11/17/17 10:29 Potassium Chloride 10 meq/ Sodium Chloride 1,005 ml @ 100 mls/hr Q10H3M IV 11/03/17 10:30 12/03/17 10:29 Oxycodone HCl (Roxicodone Immediate Rel Tab) 1-2 TABS FOR PAIN 1 TABLET ... Q4H PRN PO 11/03/17 10:30 11/17/17 10:29 11/03/17 12:37 10 MG Acetaminophen (Tylenol Tab) 1,000 mg Q8H PO 11/03/17 12:30 12/03/17 12:29 11/03/17 13:04 1,000 MG Magnesium Hydroxide (Milk Of Magnesia Susp) 30 ml Q6H PRN PO 11/03/17 10:30 12/03/17 10:29 Senna (Senokot Tab) 17.2 mg HS PO 11/03/17 21:00 12/03/17 20:59 Al Hydrox/Mg Hydrox/Simethicone (Maalox Max Susp) 15 ml Q4H PRN PO 11/03/17 10:30 12/03/17 10:29 Multivitamins (Multivitamin Tab) 1 tab QAM PO 11/04/17 09:00 12/04/17 08:59 Ondansetron HCl (Zofran Inj) 4 mg Q6H PRN IV 11/03/17 10:30 12/03/17 10:29 Miscellaneous Information (Consult Glycemic Management Pharmacy) 1 ea UD PRN N/A 11/03/17 10:49 12/03/17 10:48 Insulin Aspart (novoLOG ASPART) SLIDING SCALE ACHS [place] 11/03/17 11:00 12/03/17 10:59 11/03/17 13:01 6 UNITS Insulin Glargine (Lantus Solostar Pen) 15 units TODAY@1200 [place] 11/03/17 12:00 11/03/17 15:00 11/03/17 13:03 15 UNITS Insulin Glargine (Lantus Solostar Pen) SEE PROTOCOL TEXT PLEASE HS [place] 11/03/17 21:00 12/03/17 20:59 Insulin Aspart (novoLOG ASPART) SLIDING SCALE TODAY@0200 [place] 11/04/17 02:00 11/04/17 02:01 Glucose (Glucose 40% Gel) 15-30 GRAMS 15 GRAMS... UD PRN PO 11/03/17 11:00 12/03/17 10:59 Glucose (Glucose Chew Tab) 4-8 Tablets 4 Tabl... UD PRN PO 11/03/17 11:00 12/03/17 10:59 Dextrose (Dextrose 50% 50ML Syringe) 25-50ML OF 50% DW IV FOR... UD PRN IV 11/03/17 11:00 12/03/17 10:59 Glucagon (Glucagon Inj) 1 mg UD PRN SQ 11/03/17 11:00 12/03/17 10:59 Cefazolin Sodium 1000 mg/Syringe 5 ml @ 1.667 mls/ min Q8H IV 11/03/17 17:00 11/04/17 01:02 Review of Systems Constitutional: No weight loss Eyes: No worsening of vision, No eye pain, No redness, No discharge ENT: No hearing loss, No unusual epistaxis, No nasal symptoms, No sore throat Respiratory: No cough, No sputum, No wheezing, No shortness of breath, No dyspnea on exertion, No dyspnea at rest, No hemoptysis Cardiovascular: No chest pain, No orthopnea, No PND, No edema, No palpitations Abdomen: No pain, No nausea, No vomiting, No diarrhea, No GI bleeding Musculoskeletal: + joint pain (see HPI) Genitourinary - Female: No dysuria, No urinary frequency, No urinary urgency, No urinary incontinence, No urinary retention, No hematuria Neurologic: No paralysis, No weakness, No numbness/tingling, No vertigo Psychiatric: No depression symptoms, No anxiety Endocrine: No fatigue, No excessive thirst, No excessive urination Hematologic / Lymphatic: No abnormal bleeding/bruising, No clotting problems, No swollen lymph nodes, No night sweats Integumentary: No rash, No itch Physical Exam Date Time Temp Pulse Resp B/P (MAP) Pulse Ox O2 Delivery O2 Flow Rate FiO2 11/03/17 14:17 37.0 92 17 143/80 (101) 97 Nasal Cannula 2.0 11/03/17 13:17 37.3 93 16 131/78 (95) 98 Nasal Cannula 2.0 11/03/17 12:21 84 18 146/85 (105) 97 Nasal Cannula 2.0 11/03/17 11:57 98 Nasal Cannula 3.0 11/03/17 11:50 77 16 129/78 (95) 96 11/03/17 11:20 98 Nasal Cannula 3.0 11/03/17 11:20 37.2 78 16 125/74 (91) 98 Nasal Cannula 3.0 11/03/17 11:06 73 146/84 100 11/03/17 11:06 75 16 11/03/17 11:01 77 141/66 100 11/03/17 11:01 76 16 11/03/17 11:00 36.4 11/03/17 10:57 81 16 100 11/03/17 10:57 82 11/03/17 10:56 149/75 11/03/17 10:52 78 17 11/03/17 10:52 77 17 100 11/03/17 10:51 136/94 11/03/17 10:47 80 13 11/03/17 10:47 79 13 100 11/03/17 10:46 144/85 11/03/17 10:42 86 17 100 11/03/17 10:42 83 17 11/03/17 10:41 158/86 11/03/17 10:40 Nasal Cannula 3 11/03/17 10:37 92 13 100 11/03/17 10:37 93 13 11/03/17 10:36 155/98 11/03/17 10:32 97 14 11/03/17 10:32 98 14 100 11/03/17 10:30 157/93 11/03/17 10:27 36.6 97 12 157/93 100 Oxymask 7 11/03/17 07:23 37 100 18 130/53 (78) 95 Room Air General Appearance: WD/WN, no apparent distress Head: normocephalic, atraumatic Eyes: normal inspection, PERRL, EOMI, sclerae normal ENT: hearing grossly normal, pharynx normal, + pertinent finding (moist mucous membranes) Neck: supple, no adenopathy, trachea midline Respiratory/Chest: chest non-tender, lungs clear, normal breath sounds, no respiratory distress, no accessory muscle use Cardiovascular: regular rate, rhythm, no murmur Abdomen/GI: normal bowel sounds, non tender, soft Back: normal inspection Extremities/Musculoskelatal: + pertinent finding (Right lower leg to foot with splint in place. Pt can move toes and has sensation to light touch and brisk capillary refill. Remaining extremities without edema, erythema, ecchymosis and non-tender, ROM intact, distal pulses intact. ) Laboratory Results Last 24 Hours Test 11/03/17 07:12 11/03/17 07:20 11/03/17 09:17 11/03/17 09:46 Bedside Glucose 365 mg/dl 326 mg/dl 240 mg/dl Sodium Level 133 mmol/L Potassium Level 3.9 mmol/L Chloride Level 99 mmol/L Carbon Dioxide Level 27 mmol/L Anion Gap 7.0 mmol/L Blood Urea Nitrogen 16 mg/dl Creatinine 0.92 mg/dl Est Creatinine Clear Calc Drug Dose 64.6 ml/min Estimated GFR () 84.1 Estimated GFR (Non- 72.6 BUN/Creatinine Ratio 17.0 Random Glucose 331 mg/dl Estimated Average Glucose 275 mg/dl Hemoglobin A1c 11.2 % Calcium Level 8.8 mg/dl Albumin 3.0 gm/dl Beta-Hydroxybutyric Acid 9.71 mg/dL Human Chorionic Gonadotropin, Qual NEG Test 11/03/17 10:31 11/03/17 12:29 Bedside Glucose 195 mg/dl 227 mg/dl Assessment & Plan Pt post op today S/P ORIF R medial malleolus fracture, ORIF R syndesmotic disruption and closed tx R proximal fibular fracture by Dr Zabala -pain management per ortho -wound management per ortho -PT/OT as appropriate -DVT prophylaxis per ortho -incentive spirometry -monitor H&H for acute blood loss anemia UNCONTROLLED DIABETES MELLITUS Pt with hx DM II stopped treatment with Metformin 1000mg BID as hasn't followed with PCP for >3 years. Pt's glucose this am 331, down to 227 last POC check. AG : normal at 7.0. K:3.9. Pt asymptomatic. Pt received 15U lantus at noon today and 6U NovoLog sliding scale at 1300 today. -Glycemic pharmacist already contacted and recommends the 15 U Lantus given and 5U tonight if BS>180. Novolog Sliding scale with Correction factor 30, carb ration 10 with range 140-180 -monitor prp PSEUDOHYPONATREMIA corrected Na for hyperglycemia 137 -continue to monitor DVT PROPHYLAXIS -per protocol DISPOSITION -admitted med-surg -Full Code as per discussion with pt -Pt planning on following up with [facility] PCP Pt was seen with Dr Rhodes. See addendum Attending Addendum: The patient was sen and examined S/P Right Ankle surgery Has diabetes and not been taking any med and or following diabetic Diet for a long time Denies any symptoms O/E [id number] stable Chest-clear to ausucltate bilaterally Heart-regular Abdomen-benign,no masses,bowel sound present Labs and Imaging studies were reviewed Agree with the assessment and plan Dr Elvira Rhodes
[2017-11-03] MEDS: CEFAZOLIN IV 1,000 MG in SYRINGE 0 ML IV SCH (16:28)
[2017-11-03] MEDS ORDERED: NURSING VERBAL MED ORDER ONE (16:45)
[2017-11-03] MEDS: SENNA 8.6 MG TAB PO SCH (22:19)
[2017-11-04] MEDS: CEFAZOLIN IV 1,000 MG in SYRINGE 0 ML IV SCH (00:17)
[2017-11-04] MEDS ORDERED: INSULIN ASPART 100 UNITS/ML 3 ML PEN SC SCH (02:00)
[2017-11-04] MEDS: POTASSIUM CHLORIDE INJ 10 MEQ in SODIUM CHLORIDE 0.9% 1000ML 1,000 ML IV SCH ×3 (02:16→23:48)
[2017-11-04 03:50] VITALS: BP 122/76; PULSE 99; TEMP 37.1; O2SAT 94
[2017-11-04] MEDS: ACETAMINOPHEN 500 MG TAB PO SCH ×3 (04:03→21:03)
[2017-11-04 06:00] LABS: HEMATOCRIT 31.2 % (37-47); HEMOGLOBIN 10.5 g/dL (12.0-16.0); MEAN CELL VOLUME 93.4 fL (80-100); MEAN CORPUSCULAR HEMOGLOBIN 31.4 pg (25-34); MEAN CORPUSCULAR HGB CONC 33.7 g/dl (32-36); MEAN PLATELET VOLUME 10.6 fL (7.4-10.4); PLATELET COUNT 199 K/uL (130-400); RED CELL DISTRIBUTION WIDTH CV 12.5 % (11.5-14.5); RED CELL DISTRIBUTION WIDTH SD 42.8 fL (36.4-46.3); WHITE BLOOD COUNT 10.51 K/uL (4.8-10.8)
[2017-11-04 06:30] LABS: CALCIUM 8.6 mg/dl (8.5-10.1); CREATININE 0.87 mg/dl (0.60-1.20); POTASSIUM 3.9 mmol/L (3.5-5.1)
--- NOTE | 2017-11-04 06:34 | Orthopedic Progress Note ---
Orthopedic Progress Note Date of Service Nov 04, 2017. Subjective Post OP Day: 1 Reports: feeling well, pain controlled w PO medications, Denies: complaints, chest pain, SOB, nausea / vomiting, light headedness, calf pain Objective N/V intact, splint C/D/I, capillary refill less than 2 sec., dressing C/D/I, A& O x3, toes mobile Date Time Temp Pulse Resp B/P (MAP) Pulse Ox O2 Delivery O2 Flow Rate FiO2 11/04/17 03:50 37.1 99 18 122/76 (91) 94 Room Air 11/03/17 23:45 Room Air 11/03/17 23:05 37.2 91 18 111/72 (85) 92 Room Air 11/03/17 19:33 37.5 90 18 109/72 (84) 93 Room Air 11/03/17 15:30 Room Air 11/03/17 14:17 37.0 92 17 143/80 (101) 97 Nasal Cannula 2.0 11/03/17 13:17 37.3 93 16 131/78 (95) 98 Nasal Cannula 2.0 11/03/17 12:21 84 18 146/85 (105) 97 Nasal Cannula 2.0 11/03/17 11:57 98 Nasal Cannula 3.0 11/03/17 11:50 77 16 129/78 (95) 96 11/03/17 11:20 98 Nasal Cannula 3.0 11/03/17 11:20 37.2 78 16 125/74 (91) 98 Nasal Cannula 3.0 11/03/17 11:06 73 146/84 100 11/03/17 11:06 75 16 11/03/17 11:01 77 141/66 100 11/03/17 11:01 76 16 11/03/17 11:00 36.4 11/03/17 10:57 81 16 100 11/03/17 10:57 82 11/03/17 10:56 149/75 11/03/17 10:52 78 17 11/03/17 10:52 77 17 100 11/03/17 10:51 136/94 11/03/17 10:47 80 13 11/03/17 10:47 79 13 100 11/03/17 10:46 144/85 11/03/17 10:42 86 17 100 11/03/17 10:42 83 17 1/5/18 10:41 158/86 11/03/17 10:40 Nasal Cannula 3 11/03/17 10:37 92 13 100 11/03/17 10:37 93 13 11/03/17 10:36 155/98 11/03/17 10:32 97 14 11/03/17 10:32 98 14 100 11/03/17 10:30 157/93 11/03/17 10:27 36.6 97 12 157/93 100 Oxymask 7 11/03/17 07:23 37 100 18 130/53 (78) 95 Room Air Laboratory Results 24 Hours: Test 11/04/17 05:28 Hematocrit 31.2 % Hemoglobin 10.5 g/dL Assessment & Plan Assessment: POD #1 s/p ORIF of right medial malleolus fracture, ORIF of syndesmotic disruption, Closed treatment of right proximal fibula fracture. -strict NWB -keep splint on and in place -Ice/elevate for swelling -pain control UNCONTROLLED DIABETES MELLITUS- -medical consultation, appreciated medical management. will check later to see if better controlled, will hold discharge until improvement, whether that be later today or tomorrow. will need close follow up with PCP
--- NOTE | 2017-11-04 06:36 | Discharge Instructions ---
Discharge Instructions Date of Service Nov 04, 2017. Admission Reason for Admission: Right Tibia Displaced Medial Malleolus Fracture Discharge Discharge Diagnosis / Problem: open reduction internal fixation right ankle fracture Discharge Goals Goal(s): Decrease discomfort, Improve function, Increase independence Activity Recommendations Activity Limitations: as noted below Weightbearing Status: Right non-weightbearing . Instructions / Follow-Up Instructions / Follow-Up ACTIVITY RECOMMENDATIONS: * Remain non-weightbearing on your right leg. use crutches or walker to assist. SPECIAL CARE INSTRUCTIONS: * Some drainage onto the dressing is normal and is no cause for alarm. * Some swelling is natural especially after walking. When resting, keep your foot elevated above the level of your heart. * Call the doctor's office at if you notice increased drainage, fever over 101 degrees F. or severe constant pain. BANDAGE: * Leave bandage/cast in place unless otherwise directed. * Keep bandage/cast dry at all times. FOLLOW UP VISIT: If appointment is not already scheduled: Please call [facility] to make a follow-up appointment after your surgery at . Current Hospital Diet Patient's current hospital diet: Diabetes Type 2 Diet Discharge Diet Recommended Diet: Diabetes Type 2 Diet Procedures Procedures Performed: Open reduction internal fixation right ankle medial malleolus fracture, Open reduction internal fixation syndesmosis, Closed treatment right proximal fibula fracture Pending Studies Studies pending at discharge: no Laboratory Results Hemoglobin A1c Test 11/03/17 07:20 Range/Units Estimated Average Glucose 275 mg/dl Hemoglobin A1c 11.2 H 4.5-5.6 % Medical Emergencies . Who to Call and When: Medical Emergencies: If at any time you feel your situation is an emergency, please call 911 immediately. . Non-Emergent Contact Non-Emergency issues call your: Primary Care Provider, Surgeon . "Provider Documentation" section prepared by Vasquez Obregon. . VTE Core Measure Inpt VTE Proph given/why not?: [facility] [place] Drug Monitoring Program Search Results: patient reviewed within database, no issues identified
[2017-11-04] MEDS ORDERED: RXC5 PO (06:38)
[2017-11-04] MEDS ORDERED: ACET-24 PO (06:38)
[2017-11-04] MEDS ORDERED: PROM1TAB6 PO (06:38)
[2017-11-04 07:51] VITALS: BP 125/82; PULSE 81; TEMP 36.6; O2SAT 92
[2017-11-04] MEDS: INSULIN ASPART 100 UNITS/ML 3 ML PEN SC SCH ×4 (08:43→21:59)
[2017-11-04] MEDS: MULTIVITAMIN TAB PO SCH (08:44)
[2017-11-04] MEDS ORDERED: INSULIN GLARGINE SOLOSTAR 100 UNITS/ML 3 ML PEN SC SCH (09:00)
[2017-11-04 11:59] VITALS: BP 139/85; PULSE 96; O2SAT 96
[2017-11-04 12:05] VITALS: BP 120/79; PULSE 92; TEMP 37; O2SAT 95
--- NOTE | 2017-11-04 12:15 | Pharmacy Progress Note ---
Glycemic Control Progress Note Date of Service Nov 04, 2017. Scope Glycemic Pharmacist consulted for glycemic control to write orders per [facility] inpatient glycemic control protocol. Objective Accuchecks BSG (last 24hrs): Test 11/03/17 12:29 11/03/17 17:00 11/03/17 20:40 11/04/17 02:11 Bedside Glucose 227 mg/dl (70-90) 261 mg/dl (70-90) 228 mg/dl (70-90) 234 mg/dl (70-90) Test 11/04/17 05:28 11/04/17 08:14 Random Glucose 200 mg/dl (70-99) Bedside Glucose 242 mg/dl (70-90) HbA1c: Test 11/03/17 07:20 Hemoglobin A1c 11.2 % (4.5-5.6) H Recent Pertinent Medications Outpatient Anti-diabetic Regimen: * N/A Risk Factors for Insulin Resistance: * Recent Surgery: POD 1 for tib fracture surgery * Diet: type 2 diabetic diet: Outpatient Anti-Diabetic Meds N/A Assessment & Plan ASSESSMENT: * Ms Oconnor is a 52 y/o F who underwent a tibia fracture repair surgery yesterday. She denies any medical treatment for diabetes * Blood sugars ranged yesterday from 326 mg/dL (as the fasting) to 195 mg/dL. She received a total of 35 units yesterday (20 units of Lantus). She received an additional 2 units overnight. Increased Lantus to 20 units this morning and then 25 units tomorrow. Added metformin XR 500 mg twice daily (increased tolerance with extended release). * For Novolog, post-prandial blood sugars seemed adequate controlled by current parameters. Did lower goal range to reflect that desired blood sugars are actually around 180 mg/dL Added on overnight accucheck to ensure patient does not trend upwards throughout the night. PLAN FOR INPATIENT GLYCEMIC CONTROL: * Basal insulin with LANTUS 20 units SQ today then 25 units tomorrow morning. * Correctional Insulin with NOVOLOG per scale ACHS or Q6hrs while NPO * Goal Range: Low 110 mg/dL - High 140 mg/dL * Correction Factor: 30 mg/dL/unit * Nutritional / Prandial insulin per carb ratio of 1 unit per 10 grams CHO consumed * Please note that the plan above was derived based on current level of insulin resistance and hospital stress. These recommendations are appropriate for inpatient admission only. Plan of care upon discharge will need to be reassessed to avoid potential outpatient hypo/hyperglycemia. Thank you.
[2017-11-04] MEDS: METFORMIN HCL 500 MG TABCR PO SCH ×2 (12:41→17:47)
[2017-11-04 15:10] VITALS: BP 114/74; PULSE 81; TEMP 36.5; O2SAT 95
--- NOTE | 2017-11-04 18:10 | Progress Note ---
Subjective Date of Service: Nov 04, 2017. Subjective Pt evaluation today including: conversation w/ patient, physical exam, lab review, review of studies, review of inpatient medication list Saw/examined the patient in room 316 She is doing fine, no pain in the ankle States she was once on metformin, but did not get this renewed and did not follow-up with her doctor Problem List Medical Problems: (1) Fracture of distal end of tibia Status: Acute (2) Fracture of proximal end of fibula Status: Acute Review of Systems Constitutional: No fever, No chills Respiratory: No shortness of breath Cardiac: No chest pain Musculoskeletal: No joint pain Neurologic: No weakness, No numbness/tingling Medications Current Inpatient Medications Medications (Trade) Dose Ordered Sig/Vaishali Route Start Time Stop Time Status Last Admin Dose Admin Morphine Sulfate (MoRPHine SULFATE INJ) 2 mg Q4HWA PRN IV 11/03/17 10:30 11/17/17 10:29 Morphine Sulfate (MoRPHine SULFATE INJ) 4 mg Q4HWA PRN IV 11/03/17 10:30 11/17/17 10:29 Potassium Chloride 10 meq/ Sodium Chloride 1,005 ml @ 100 mls/hr Q10H3M IV 11/03/17 10:30 12/03/17 10:29 11/04/17 13:32 100 MLS/HR Oxycodone HCl (Roxicodone Immediate Rel Tab) 1-2 TABS FOR PAIN 1 TABLET ... Q4H PRN PO 11/03/17 10:30 11/17/17 10:29 11/03/17 12:37 10 MG Acetaminophen (Tylenol Tab) 1,000 mg Q8H PO 11/03/17 12:30 12/03/17 12:29 11/04/17 12:42 1,000 MG Magnesium Hydroxide (Milk Of Magnesia Susp) 30 ml Q6H PRN PO 11/03/17 10:30 12/03/17 10:29 Senna (Senokot Tab) 17.2 mg HS PO 11/03/17 21:00 12/03/17 20:59 11/03/17 22:19 17.2 MG Al Hydrox/Mg Hydrox/Simethicone (Maalox Max Susp) 15 ml Q4H PRN PO 11/03/17 10:30 12/03/17 10:29 Multivitamins (Multivitamin Tab) 1 tab QAM PO 11/04/17 09:00 12/04/17 08:59 11/04/17 08:44 1 TAB Ondansetron HCl (Zofran Inj) 4 mg Q6H PRN IV 11/03/17 10:30 12/03/17 10:29 Miscellaneous Information (Consult Glycemic Management Pharmacy) 1 ea UD PRN N/A 11/03/17 10:49 12/03/17 10:48 Insulin Aspart (novoLOG ASPART) SLIDING SCALE ACHS SC 11/03/17 11:00 12/03/17 10:59 11/04/17 17:50 8 UNITS Glucose (Glucose 40% Gel) 15-30 GRAMS 15 GRAMS... UD PRN PO 11/03/17 11:00 12/03/17 10:59 Glucose (Glucose Chew Tab) 4-8 Tablets 4 Tabl... UD PRN PO 11/03/17 11:00 12/03/17 10:59 Dextrose (Dextrose 50% 50ML Syringe) 25-50ML OF 50% DW IV FOR... UD PRN IV 11/03/17 11:00 12/03/17 10:59 Glucagon (Glucagon Inj) 1 mg UD PRN SQ 11/03/17 11:00 12/03/17 10:59 Metformin HCl (Glucophage Extended Rel Tab) 500 mg BIDM PO 11/04/17 12:00 12/04/17 11:59 11/04/17 17:47 500 MG Insulin Glargine (Lantus Solostar Pen) 25 units DAILY SC 11/05/17 09:00 12/05/17 08:59 Insulin Aspart (novoLOG ASPART) SLIDING SCALE TODAY@0200 [place] 11/05/17 02:00 11/05/17 02:01 Objective Vital Signs Date Time Temp Pulse Resp B/P (MAP) Pulse Ox O2 Delivery O2 Flow Rate FiO2 11/04/17 16:35 Room Air 11/04/17 15:10 36.5 81 16 114/74 (87) 95 Room Air 11/04/17 12:05 37.0 92 18 120/79 (93) 95 Room Air 11/04/17 11:59 96 96 11/04/17 07:51 36.6 81 18 125/82 (96) 92 Room Air 11/04/17 07:40 Room Air 11/04/17 03:50 37.1 99 18 122/76 (91) 94 Room Air 11/03/17 23:45 Room Air 11/03/17 23:05 37.2 91 18 111/72 (85) 92 Room Air 11/03/17 19:33 37.5 90 18 109/72 (84) 93 Room Air Physical Exam General Appearance: no apparent distress Respiratory/Chest: lungs clear, normal breath sounds, no respiratory distress, no accessory muscle use Cardiovascular: regular rate, rhythm, no edema, no murmur Extremities: + pertinent finding (R foot/leg dressed) Neurologic/Psychiatric: no motor/sensory deficits, alert, normal mood/affect Laboratory Results Last 24 Hours Test 11/03/17 20:40 11/04/17 02:11 11/04/17 05:28 11/04/17 08:14 Bedside Glucose 228 mg/dl 234 mg/dl 242 mg/dl White Blood Count 10.51 K/uL Red Blood Count 3.34 M/uL Hemoglobin 10.5 g/dL Hematocrit 31.2 % Mean Corpuscular Volume 93.4 fL Mean Corpuscular Hemoglobin 31.4 pg Mean Corpuscular Hemoglobin Concent 33.7 g/dl RDW Standard Deviation 42.8 fL RDW Coefficient of Variation 12.5 % Platelet Count 199 K/uL Mean Platelet Volume 10.6 fL Sodium Level 134 mmol/L Potassium Level 3.9 mmol/L Chloride Level 102 mmol/L Carbon Dioxide Level 28 mmol/L Anion Gap 4.0 mmol/L Blood Urea Nitrogen 13 mg/dl Creatinine 0.87 mg/dl Est Creatinine Clear Calc Drug Dose 68.3 ml/min Estimated GFR () 90.0 Estimated GFR (Non- 77.7 BUN/Creatinine Ratio 14.9 Random Glucose 200 mg/dl Calcium Level 8.6 mg/dl Test 11/04/17 12:09 11/04/17 17:04 Bedside Glucose 261 mg/dl 200 mg/dl Assessment and Plan This is a 52 year old female with a PMH of DM2 - presents for a R ankle repair R ankle repair s/p ORIF of R medial malleolus and proximal fibula fracture repair pain is currently controlled she is moving her toes, good cap refill weightbearing as per ortho DVT ppx as per ortho [facility] discharge Uncontrolled DM2 patient with significantly uncontrolled DM2 with an Ha1c = 11.2% appreciate pharmacy glycemic control and diabetic education will need insulin on discharge; metformin 1000mg BID started her on Lisinopril 2.5mg in the AM started her on Pravachol 20mg and will check fasting lipid profile in the AM she should be on aspirin - if okay with orthopedic team will need close outpatient follow-up - microalbumin, Ha1c q3 months - podiatry and ophthalmology checks DVT ppx as per ortho FULL CODE
[2017-11-04] MEDS: SENNA 8.6 MG TAB PO SCH (21:03)
[2017-11-04] MEDS: OXYCODONE HCL IR 5 MG TAB (IMMEDIATE RELEASE) PO PRN (22:00)
[2017-11-04 23:00] VITALS: BP 123/79; PULSE 88; TEMP 37.3; O2SAT 95
[2017-11-05] MEDS ORDERED: INSULIN ASPART 100 UNITS/ML 3 ML PEN SC SCH (02:00)
[2017-11-05 06:03] LABS: HEMATOCRIT 30.7 % (37-47); HEMOGLOBIN 10.3 g/dL (12.0-16.0); MEAN CELL VOLUME 94.2 fL (80-100); MEAN CORPUSCULAR HEMOGLOBIN 31.6 pg (25-34); MEAN CORPUSCULAR HGB CONC 33.6 g/dl (32-36); MEAN PLATELET VOLUME 10.7 fL (7.4-10.4); PLATELET COUNT 215 K/uL (130-400); RED CELL DISTRIBUTION WIDTH CV 12.7 % (11.5-14.5); RED CELL DISTRIBUTION WIDTH SD 42.7 fL (36.4-46.3); WHITE BLOOD COUNT 10.67 K/uL (4.8-10.8)
[2017-11-05] MEDS: ACETAMINOPHEN 500 MG TAB PO SCH ×3 (06:12→21:03)
--- NOTE | 2017-11-05 06:19 | Orthopedic Progress Note ---
Orthopedic Progress Note Date of Service Nov 05, 2017. Subjective Post OP Day: 2 Reports: feeling well, pain controlled w PO medications, Denies: complaints, chest pain, SOB, nausea / vomiting, light headedness, calf pain Objective N/V intact, splint C/D/I, capillary refill less than 2 sec., dressing C/D/I, A& O x3, toes mobile Date Time Temp Pulse Resp B/P (MAP) Pulse Ox O2 Delivery O2 Flow Rate FiO2 11/04/17 23:00 37.3 88 16 123/79 (94) 95 Room Air 11/04/17 21:00 Room Air 11/04/17 16:35 Room Air 11/04/17 15:10 36.5 81 16 114/74 (87) 95 Room Air 11/04/17 12:05 37.0 92 18 120/79 (93) 95 Room Air 11/04/17 11:59 96 96 11/04/17 07:51 36.6 81 18 125/82 (96) 92 Room Air 11/04/17 07:40 Room Air Laboratory Results 24 Hours: Test 11/05/17 05:04 Hematocrit 30.7 % Hemoglobin 10.3 g/dL Assessment & Plan Assessment: POD #2 s/p ORIF of right medial malleolus fracture, ORIF of syndesmotic disruption, Closed treatment of right proximal fibula fracture. -strict NWB -keep splint on and in place -Ice/elevate for swelling -pain control -awaiting approval for [facility] UNCONTROLLED DIABETES MELLITUS- -medical consultation, appreciated medical management. will check later to see if better controlled, will hold discharge until improvement, whether that be later today or tomorrow. will need close follow up with PCP Discharge Planning Discharge Planning: uncertain
--- NOTE | 2017-11-05 06:21 | Discharge Instructions ---
Discharge Instructions Date of Service Nov 05, 2017. Admission Reason for Admission: Right Tibia Displaced Medial Malleolus Fracture Discharge Discharge Diagnosis / Problem: s/p ORIF right ankle fracture and syndesmosis Discharge Goals Goal(s): Decrease discomfort, Improve function, Increase independence Activity Recommendations Activity Level: Up Ad Kirstie Therapies: Weight Bearing Status (NWB Right leg) Weightbearing Status: Right non-weightbearing . Additional Information Patient informed of condition: Yes Advance Directives: No DNR: No Level of Care: Acute Rehab Communicable Disease: No Prognosis: Stable Hernandez Catheter: No Instructions / Follow-Up Instructions / Follow-Up Instructions / Follow-Up Instructions / Follow-Up ACTIVITY RECOMMENDATIONS: * Remain non-weightbearing on your right leg. use crutches or walker to assist. SPECIAL CARE INSTRUCTIONS: * Some drainage onto the dressing is normal and is no cause for alarm. * Some swelling is natural especially after walking. When resting, keep your foot elevated above the level of your heart. * Call the doctor's office at if you notice increased drainage, fever over 101 degrees F. or severe constant pain. BANDAGE: * Leave bandage/cast in place unless otherwise directed. * Keep bandage/cast dry at all times. FOLLOW UP VISIT: If appointment is not already scheduled: Please call [facility] [place] to make a follow-up appointment after your surgery at . Current Hospital Diet Patient's current hospital diet: Diabetes Type 2 Diet Discharge Diet Recommended Diet: Diabetes Type 2 Diet Procedures Procedures Performed: Open reduction internal fixation right ankle medial malleolus fracture, Open reduction internal fixation syndesmosis, Closed treatment right proximal fibula fracture Current Hospital Diet Patient's current hospital diet: Diabetes Type 2 Diet Discharge Diet Recommended Diet: Diabetes Type 2 Diet Procedures Procedures Performed: Open reduction internal fixation right ankle medial malleolus fracture, Open reduction internal fixation syndesmosis, Closed treatment right proximal fibula fracture Pending Studies Studies pending at discharge: no Physician Orders On Transfer Dressing Changes: Will leave splint on and in place. Laboratory Results Hemoglobin A1c Test 11/03/17 07:20 Range/Units Estimated Average Glucose 275 mg/dl Hemoglobin A1c 11.2 H 4.5-5.6 % Lipid Panel Test 11/05/17 05:04 Range/Units Medical Emergencies . Who to Call and When: Medical Emergencies: If at any time you feel your situation is an emergency, please call 911 immediately. . Non-Emergent Contact Non-Emergency issues call your: Primary Care Provider, Surgeon . . "Provider Documentation" section prepared by Vasquez Obregon. . Core Measure Problem Core Measures: None [place] Drug Monitoring Program Search Results: patient reviewed within database, no issues identified
[2017-11-05 06:35] LABS: CALCIUM 8.7 mg/dl (8.5-10.1); CREATININE 0.75 mg/dl (0.60-1.20); POTASSIUM 3.8 mmol/L (3.5-5.1)
[2017-11-05 07:15] VITALS: O2SAT 95
[2017-11-05 08:01] VITALS: BP 112/72; PULSE 81; TEMP 37.1; O2SAT 95
[2017-11-05] MEDS ORDERED: INSULIN GLARGINE SOLOSTAR 100 UNITS/ML 3 ML PEN SC SCH (09:00)
[2017-11-05] MEDS: INSULIN ASPART 100 UNITS/ML 3 ML PEN SC SCH ×4 (09:31→21:09)
[2017-11-05] MEDS: INSULIN GLARGINE SOLOSTAR 100 UNITS/ML 3 ML PEN SC SCH (09:31)
[2017-11-05] MEDS: METFORMIN HCL 500 MG TABCR PO SCH ×2 (09:33→17:57)
[2017-11-05] MEDS: LISINOPRIL 2.5 MG TAB PO SCH (09:34)
[2017-11-05] MEDS: MULTIVITAMIN TAB PO SCH (09:34)
--- NOTE | 2017-11-05 10:35 | Pharmacy Progress Note ---
Glycemic Control Progress Note Date of Service Nov 05, 2017. Scope Glycemic Pharmacist consulted for glycemic control to write orders per [facility] inpatient glycemic control protocol. Objective Accuchecks BSG (last 24hrs): Test 11/04/17 12:09 11/04/17 17:04 11/04/17 20:43 11/05/17 01:49 Bedside Glucose 261 mg/dl (70-90) 200 mg/dl (70-90) 255 mg/dl (70-90) 148 mg/dl (70-90) Test 11/05/17 05:04 11/05/17 08:02 Random Glucose 148 mg/dl (70-99) Bedside Glucose 169 mg/dl (70-90) HbA1c: Test 11/03/17 07:20 Hemoglobin A1c 11.2 % (4.5-5.6) H Recent Pertinent Medications Outpatient Anti-diabetic Regimen: * N/A Risk Factors for Insulin Resistance: * Recent Surgery: POD 2 for tib fracture surgery * Diet: type 2 diabetic diet: Outpatient Anti-Diabetic Meds see above Assessment & Plan ASSESSMENT: * Ms Oconnor is a 52 y/o F who underwent a tibia fracture repair surgery; she is POD 2. She denies any medical treatment for diabetes * Blood sugars ranged yesterday from 242-261 mg/dL. She received a total of 44 units yesterday (20 units of Lantus). Increased Lantus to 22 units this morning as fasting was significantly reduced this morning at 148 mg/dL (100 points lower than yesterday). Added metformin XR 500 mg twice daily (increased tolerance with extended release). * For Novolog, post-prandial blood sugars do not appear adequately controlled. Tightened slightly to reflect this. PLAN FOR INPATIENT GLYCEMIC CONTROL: * Basal insulin with LANTUS 22 units SQ qAM * Correctional Insulin with NOVOLOG per scale ACHS or Q6hrs while NPO * Goal Range: Low 110 mg/dL - High 140 mg/dL * Correction Factor: 20 mg/dL/unit * Nutritional / Prandial insulin per carb ratio of 1 unit per 7 grams CHO consumed DISCHARGE RECOMMENDATIONS * consider starting Lantus 20 units once daily and titrate as appropriate * metformin XR 500 mg PO BID (titrate up to 1000 mg BID) is also appropriate Thank you.
[2017-11-05] MEDS: POTASSIUM CHLORIDE INJ 10 MEQ in SODIUM CHLORIDE 0.9% 1000ML 1,000 ML IV SCH ×2 (12:52→22:11)
--- NOTE | 2017-11-05 13:37 | Progress Note ---
Subjective Date of Service: Nov 05, 2017. Subjective Pt evaluation today including: conversation w/ patient, physical exam, lab review, review of studies, review of inpatient medication list Saw/examined the patient in room 316 Pain in her R ankle persists, but improves with pain medications no urinary symptoms, no numbness/tingling, no other issues to note Problem List Medical Problems: (1) Fracture of distal end of tibia Status: Acute (2) Fracture of proximal end of fibula Status: Acute Review of Systems Respiratory: No shortness of breath Cardiac: No chest pain Female : No dysuria, No urinary frequency Endo: No fatigue, No excessive thirst, No excessive urination Medications Current Inpatient Medications Medications (Trade) Dose Ordered Sig/Vaishali Route Start Time Stop Time Status Last Admin Dose Admin Morphine Sulfate (MoRPHine SULFATE INJ) 2 mg Q4HWA PRN IV 11/03/17 10:30 11/17/17 10:29 Morphine Sulfate (MoRPHine SULFATE INJ) 4 mg Q4HWA PRN IV 11/03/17 10:30 11/17/17 10:29 Potassium Chloride 10 meq/ Sodium Chloride 1,005 ml @ 100 mls/hr Q10H3M IV 11/03/17 10:30 12/03/17 10:29 11/05/17 12:52 100 MLS/HR Oxycodone HCl (Roxicodone Immediate Rel Tab) 1-2 TABS FOR PAIN 1 TABLET ... Q4H PRN PO 11/03/17 10:30 11/17/17 10:29 11/04/17 22:00 10 MG Acetaminophen (Tylenol Tab) 1,000 mg Q8H PO 11/03/17 12:30 12/03/17 12:29 11/05/17 12:52 1,000 MG Magnesium Hydroxide (Milk Of Magnesia Susp) 30 ml Q6H PRN PO 11/03/17 10:30 12/03/17 10:29 Senna (Senokot Tab) 17.2 mg HS PO 11/03/17 21:00 12/03/17 20:59 11/04/17 21:03 17.2 MG Al Hydrox/Mg Hydrox/Simethicone (Maalox Max Susp) 15 ml Q4H PRN PO 11/03/17 10:30 12/03/17 10:29 Multivitamins (Multivitamin Tab) 1 tab QAM PO 11/04/17 09:00 12/04/17 08:59 11/05/17 09:34 1 TAB Ondansetron HCl (Zofran Inj) 4 mg Q6H PRN IV 11/03/17 10:30 12/03/17 10:29 Miscellaneous Information (Consult Glycemic Management Pharmacy) 1 ea UD PRN N/A 11/03/17 10:49 12/03/17 10:48 Insulin Aspart (novoLOG ASPART) SLIDING SCALE ACHS SC 11/03/17 11:00 12/03/17 10:59 11/05/17 12:50 13 UNITS Glucose (Glucose 40% Gel) 15-30 GRAMS 15 GRAMS... UD PRN PO 11/03/17 11:00 12/03/17 10:59 Glucose (Glucose Chew Tab) 4-8 Tablets 4 Tabl... UD PRN PO 11/03/17 11:00 12/03/17 10:59 Dextrose (Dextrose 50% 50ML Syringe) 25-50ML OF 50% DW IV FOR... UD PRN IV 11/03/17 11:00 12/03/17 10:59 Glucagon (Glucagon Inj) 1 mg UD PRN SQ 11/03/17 11:00 12/03/17 10:59 Metformin HCl (Glucophage Extended Rel Tab) 1,000 mg BIDM PO 11/05/17 08:30 12/04/17 11:59 11/05/17 09:33 1,000 MG Lisinopril (Zestril Tab) 2.5 mg QAM PO 11/05/17 09:00 12/05/17 08:59 11/05/17 09:34 2.5 MG Insulin Glargine (Lantus Solostar Pen) 22 units DAILY SC 11/05/17 09:00 12/05/17 08:59 11/05/17 09:31 22 UNITS Objective Vital Signs Date Time Temp Pulse Resp B/P (MAP) Pulse Ox O2 Delivery O2 Flow Rate FiO2 11/05/17 08:01 37.1 81 16 112/72 (85) 95 Room Air 11/05/17 07:15 95 Room Air 11/04/17 23:00 37.3 88 16 123/79 (94) 95 Room Air 11/04/17 21:00 Room Air 11/04/17 16:35 Room Air 11/04/17 15:10 36.5 81 16 114/74 (87) 95 Room Air Physical Exam General Appearance: no apparent distress Respiratory/Chest: chest non-tender, lungs clear, normal breath sounds, no respiratory distress, no accessory muscle use Cardiovascular: regular rate, rhythm, no edema, no gallop, no JVD, no murmur Laboratory Results Last 24 Hours Test 11/04/17 17:04 11/04/17 20:43 11/05/17 01:49 11/05/17 05:04 Bedside Glucose 200 mg/dl 255 mg/dl 148 mg/dl White Blood Count 10.67 K/uL Red Blood Count 3.26 M/uL Hemoglobin 10.3 g/dL Hematocrit 30.7 % Mean Corpuscular Volume 94.2 fL Mean Corpuscular Hemoglobin 31.6 pg Mean Corpuscular Hemoglobin Concent 33.6 g/dl RDW Standard Deviation 42.7 fL RDW Coefficient of Variation 12.7 % Platelet Count 215 K/uL Mean Platelet Volume 10.7 fL Sodium Level 137 mmol/L Potassium Level 3.8 mmol/L Chloride Level 106 mmol/L Carbon Dioxide Level 26 mmol/L Anion Gap 5.0 mmol/L Blood Urea Nitrogen 12 mg/dl Creatinine 0.75 mg/dl Est Creatinine Clear Calc Drug Dose 79.2 ml/min Estimated GFR () 107.7 Estimated GFR (Non- 92.9 BUN/Creatinine Ratio 16.3 Random Glucose 148 mg/dl Calcium Level 8.7 mg/dl Triglycerides Level 142 mg/dl Cholesterol Level 88 mg/dl HDL Cholesterol 33 mg/dl LDL Cholesterol, Calculated 27 mg/dl VLDL Cholesterol, Calculated 28 mg/dl Cholesterol/HDL Ratio 2.7 Test 11/05/17 08:02 11/05/17 12:17 Bedside Glucose 169 mg/dl 286 mg/dl Assessment and Plan This is a 52 year old female with a PMH of DM2 - presents for a R ankle repair R ankle repair s/p ORIF of R medial malleolus and proximal fibula fracture repair pain is currently controlled she is moving her toes, good cap refill weightbearing as per ortho DVT ppx as per ortho pending [facility] discharge Uncontrolled DM2 11/05 checked fasting lipids, LDL ~ 28 will d/c Pravachol continue Lisinopril 2.5mg daily, metformin 1000mg BID, Lantus 20 units HS monitor BSGs ACHS at [facility] and adjust Lantus accordingly aspirin should be started when okay with surgery prior to discharge will need insulin/Lantus injection teaching recheck Ha1c, microalbumin in 3 months; podiatry, ophthalmology follow-ups 11/04 patient with significantly uncontrolled DM2 with an Ha1c = 11.2% appreciate pharmacy glycemic control and diabetic education will need insulin on discharge; metformin 1000mg BID started her on Lisinopril 2.5mg in the AM started her on Pravachol 20mg and will check fasting lipid profile in the AM she should be on aspirin - if okay with orthopedic team will need close outpatient follow-up - microalbumin, Ha1c q3 months - podiatry and ophthalmology checks DVT ppx as per ortho FULL CODE
--- NOTE | 2017-11-05 13:39 | Consultant Recommendations ---
Dry Cleaner Apprentice Recommendations Date of Service Nov 05, 2017. Dry Cleaner Apprentice Recommendations Please discharge with the following medications: Lantus 20 units qHS Metformin 1000mg BID Lisinopril 2.5mg daily Aspirin if okay with surgical team Outpatient instructions: check blood sugars ACHS Ha1c, urinary microalbumin in 2-3 months as outpatient fasting lipid profile in 2-3 months as outpatient podiatry and ophthalmology follow-ups yearly
[2017-11-05 15:17] VITALS: BP 111/73; PULSE 93; TEMP 37; O2SAT 95
[2017-11-05] MEDS: OXYCODONE HCL IR 5 MG TAB (IMMEDIATE RELEASE) PO PRN (15:31)
[2017-11-05] MEDS ORDERED: PRAVASTATIN SOD 20 MG TAB PO SCH (17:00)
[2017-11-05] MEDS: SENNA 8.6 MG TAB PO SCH (21:00)
[2017-11-05 23:10] VITALS: BP 105/68; PULSE 87; TEMP 37.2; O2SAT 95
[2017-11-06 05:40] LABS: HEMATOCRIT 30.6 % (37-47); HEMOGLOBIN 10.1 g/dL (12.0-16.0); MEAN CELL VOLUME 94.4 fL (80-100); MEAN CORPUSCULAR HEMOGLOBIN 31.2 pg (25-34); MEAN PLATELET VOLUME 10.3 fL (7.4-10.4); PLATELET COUNT 227 K/uL (130-400); RED CELL DISTRIBUTION WIDTH SD 44.7 fL (36.4-46.3); WHITE BLOOD COUNT 10.08 K/uL (4.8-10.8)
[2017-11-06] MEDS: ACETAMINOPHEN 500 MG TAB PO SCH (05:45)
--- NOTE | 2017-11-06 07:37 | Anesthesiology Progress Note ---
Anesthesia Post Op Note Date & Time Nov 06, 2017 at 07:37 Vital Signs Vital Signs Past 12 Hours Date Time Temp Pulse Resp B/P (MAP) Pulse Ox O2 Delivery O2 Flow Rate FiO2 11/05/17 23:10 37.2 87 16 105/68 (80) 95 Room Air 11/05/17 23:05 Room Air Notes Mental Status: alert / awake / arousable, participated in evaluation Pt Amnestic to Procedure: Yes Nausea / Vomiting: adequately controlled Pain: adequately controlled Airway Patency, RR, SpO2: stable & adequate BP & HR: stable & adequate Hydration State: stable & adequate Anesthetic Complications: no major complications apparent
--- NOTE | 2017-11-06 07:40 | Orthopedic Progress Note ---
Orthopedic Progress Note Date of Service Nov 06, 2017. Subjective Post OP Day: 3 Reports: feeling well, pain controlled w PO medications, Denies: complaints, chest pain, SOB, calf pain Objective calves soft nontender, N/V intact, splint C/D/I, A&O x3, toes mobile Date Time Temp Pulse Resp B/P (MAP) Pulse Ox O2 Delivery O2 Flow Rate FiO2 11/05/17 23:10 37.2 87 16 105/68 (80) 95 Room Air 11/05/17 23:05 Room Air 11/05/17 15:27 Room Air 11/05/17 15:17 37.0 93 18 111/73 (86) 95 Room Air 11/05/17 08:01 37.1 81 16 112/72 (85) 95 Room Air Laboratory Results 24 Hours: Test 11/06/17 04:55 Hematocrit 30.6 % Hemoglobin 10.1 g/dL Assessment & Plan Assessment: POD #3 s/p ORIF of right medial malleolus fracture, ORIF of syndesmotic disruption, Closed treatment of right proximal fibula fracture. -strict NWB -keep splint on and in place -Ice/elevate for swelling -pain control -awaiting bed at [facility]--Will place d/c order for if a bed becomes available today. UNCONTROLLED DIABETES MELLITUS- -medical consultation, appreciated medical management. Will plan for d/c today. F/U outpatient with PCP for DM control and to check HgbA1C in 3 months. Inhouse Planning Pain Management: Oxy IR Discharge Planning Discharge Planning: rehab hospital ([facility]) Pain Management: Oxy IR DVT Prophylaxis: ASA
[2017-11-06] MEDS ORDERED: GLCSR500 PO (07:43)
[2017-11-06] MEDS ORDERED: INSDGIPEN SC (07:43)
[2017-11-06] MEDS ORDERED: ASPEC81 PO (07:43)
[2017-11-06] MEDS ORDERED: LSN25 PO (07:46)
[2017-11-06 08:10] VITALS: BP 118/88; PULSE 85; TEMP 36.9; O2SAT 94
[2017-11-06 08:19] VITALS: O2SAT 94
[2017-11-06] MEDS: METFORMIN HCL 500 MG TABCR PO SCH (08:35)
[2017-11-06] MEDS: LISINOPRIL 2.5 MG TAB PO SCH (08:35)
[2017-11-06] MEDS: MULTIVITAMIN TAB PO SCH (08:35)
[2017-11-06] MEDS: POTASSIUM CHLORIDE INJ 10 MEQ in SODIUM CHLORIDE 0.9% 1000ML 1,000 ML IV SCH (08:35)
[2017-11-06] MEDS: INSULIN ASPART 100 UNITS/ML 3 ML PEN SC SCH ×2 (08:40→12:48)
[2017-11-06] MEDS: INSULIN GLARGINE SOLOSTAR 100 UNITS/ML 3 ML PEN SC SCH (08:41)
[2017-11-06 09:43] VITALS: BP 118/88; PULSE 85; TEMP 36.9; O2SAT 94
== END 2017-11-06 13:30 | DRG 494 ==
LOC: C.ACU 06:48 → C.3E 07:05 → ENRESERV 10:59
PROVIDERS: ADMIT Orthopaedic Surgery Sports Medicine; ATTEND Orthopaedic Surgery Sports Medicine
PROC: 0SSF04Z Reposition Right Ankle Joint with Internal Fixation Device, Open Approach (ICD-10-PCS; principal; 2017-11-03 08:30)
PROC: 2W3QX1Z Immobilization of Right Lower Leg using Splint (ICD-10-PCS; principal; 2017-11-03 08:30)
PROC: 0QSG04Z Reposition Right Tibia with Internal Fixation Device, Open Approach (ICD-10-PCS; principal; 2017-11-03 08:30)
DX: S82.51XA Displaced fracture of medial malleolus of right tibia, initial encounter for closed fracture (principal); S82.831A Other fracture of upper and lower end of right fibula, initial encounter for closed fracture; E11.65 Type 2 diabetes mellitus with hyperglycemia; Z91.14 Patient's other noncompliance with medication regimen; W19.XXXA Unspecified fall, initial encounter